=== PATIENT | male | born 1995 | race Caucasian/White ===

== ENCOUNTER 2023-03-05 19:24 | Emergency (ER) | payer SELFPAY ==
[~2023-03-05] VITALS: Ht 165.1 cm; Wt 75.0 kg
[2023-03-05 19:39] VITALS: O2SAT 100
[2023-03-05] MEDS ORDERED: TETANUS, DIPHTHERIA, PERTUSSIS VAC/PF 0.5ML (>10YR OLD) IM ONE (21:00)
[2023-03-05] MEDS ORDERED: ACETAMINOPHEN 325MG TABLET PO ONE (21:00)
[2023-03-05 22:37] VITALS: BP 122/78; PULSE 80; RESP 15; TEMP 97.3
== END 2023-03-05 22:37 | disposition home or self-care (01) ==
LOC: ER 19:24
DX: S06.9X1A Unspecified intracranial injury with loss of consciousness of 30 minutes or less, initial encounter (principal); S01.01XA Laceration without foreign body of scalp, initial encounter; W22.8XXA Striking against or struck by other objects, initial encounter; Y93.89 Activity, other specified; Y92.89 Other specified places as the place of occurrence of the external cause; Y99.0 Civilian activity done for income or pay
CPT/HCPCS: 70450; 90715; 12002; 90471; 99285; Z7610 ×3

== ENCOUNTER 2023-03-12 14:13 | Emergency (ER) | payer MEDICAID ==
[~2023-03-12] VITALS: Ht 162.6 cm; Wt 75.3 kg
[2023-03-12 14:19] VITALS: BP 131/92; RESP 18; TEMP 98.1; O2SAT 99
[2023-03-12 14:36] VITALS: PULSE 75
== END 2023-03-12 18:40 | disposition home or self-care (01) ==
LOC: ER 14:13
DX: Z48.02 Encounter for removal of sutures (principal)
CPT/HCPCS: 99281